=== PATIENT | female | born 1965 | race African-American/Black ===

== ENCOUNTER 2018-12-20 18:58 | Emergency (ER) | payer MEDICAID, OTHER ==
[~2018-12-20] VITALS: Ht 165.1 cm; Wt 85.0 kg
[2018-12-20] MEDS ORDERED: SODIUM CHLORIDE 0.9% 1,000 ML IV ONE (20:07)
[2018-12-20] MEDS ORDERED: MORPHINE SULFATE 4 MG/ML CPJ (NOT FOR IM USE) IV STA (20:07)
[2018-12-20] MEDS ORDERED: ONDANSETRON HCL 4MG/2ML INJ IV STA (20:07)
[2018-12-20 20:57] LABS: BASOPHILS % 0.1 % (0.0-2.0); EOSINOPHILS % 0.4 % (0.0-5.0); HEMATOCRIT. 38.9 % (36.0-48.0); HEMOGLOBIN. 13.1 g/dL (12.0-16.0); LYMPHOCYTES % 16.2 % (20.0-50.0); MEAN CORPUSCULAR HEMOGLOBIN 27.1 pg (28.0-32.0); MEAN CORPUSCULAR VOLUME 80.7 fL (81.0-99.0); MONOCYTES % 4.4 % (2.0-8.0); NEUTROPHILS % 78.9 % (40.0-76.0); PLATELET 159 x1000/uL (130-400); RED BLOOD CELL COUNT 4.81 mill/uL (4.2-5.4); RED CELL DISTRIBUTION WIDTH 13.8 % (11.6-14.6)
[2018-12-20 21:02] LABS: CHLORIDE 106 mEq/L (98-107)
[2018-12-20 21:05] LABS: PROTHROMBIN TIME 10.5 sec (9.6-11.0)
[2018-12-20] MEDS ORDERED: IOHEXOL-300 100 ML BOTTLE ONE (23:34)
[2018-12-20] MEDS ORDERED: ACETAMINOPHEN 325MG TABLET PO ONE (23:45)
[2018-12-21 00:47] VITALS: BP 142/73
== END 2018-12-21 00:50 | disposition home or self-care (01) ==
LOC: ER 18:58
DX: S42.302A Unspecified fracture of shaft of humerus, left arm, initial encounter for closed fracture (principal); V49.60XA Unspecified car occupant injured in collision with unspecified motor vehicles in traffic accident, initial encounter; Y93.89 Activity, other specified; Y92.89 Other specified places as the place of occurrence of the external cause; Y99.8 Other external cause status
CPT/HCPCS: 36415; 70450; 71045; 71260; 73030; 73090; 74177; 80053; 83690; 83880; 84484; 85025; 85610; 85730; 86850; 86900; 86901; 93005; 96361; 96374; 96375; 99284; J2270; J2405; J7030; Q9967; L3670

== ENCOUNTER 2019-10-29 17:50 | Emergency (ER) | payer MEDICAID ==
[~2019-10-29] VITALS: Ht 177.8 cm; Wt 91.0 kg
[2019-10-29 19:46] VITALS: BP 129/68
== END 2019-10-29 19:47 | disposition home or self-care (01) ==
LOC: ER 17:50
DX: M62.838 Other muscle spasm (principal)
CPT/HCPCS: 99283; Z7610; 99282

== ENCOUNTER 2021-03-13 16:24 | Emergency (ER) | payer MEDICAID ==
[~2021-03-13] VITALS: Ht 177.8 cm; Wt 95.0 kg
[2021-03-13 16:38] VITALS: BP 129/90
== END 2021-03-13 20:55 | disposition left against medical advice (07) ==
LOC: ER 16:24
DX: Z53.21 Procedure and treatment not carried out due to patient leaving prior to being seen by health care provider (principal); M54.2 Cervicalgia; R51.9 Headache, unspecified; M25.512 Pain in left shoulder
CPT/HCPCS: 93005